=== PATIENT | female | born 2005 | race Caucasian/White ===

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

== ENCOUNTER 2023-01-15 08:45 | Outpatient (RCR) | payer BC, SELFPAY | END 2023-01-15 10:17 | disposition home or self-care (01) | PROVIDERS: PCP Nurse Practitioner Family; Visit Provider Dentist General Practice | DX: M26.629 Arthralgia of temporomandibular joint, unspecified side (principal); R29.3 Abnormal posture; R53.1 Weakness; Z74.09 Other reduced mobility; Z51.89 Encounter for other specified aftercare | CPT/HCPCS: 97110; 97140; 97161 ==